=== PATIENT | male | born 1960 | race African-American/Black ===

== ENCOUNTER 2018-06-10 08:59 | Inpatient (IN) | payer MEDICARE ==
[~2018-06-10] VITALS: Ht 175.3 cm; Wt 94.8 kg
[2018-06-10] MEDS ORDERED: ONDANSETRON HCL 4MG/2ML INJ IV STA (10:56)
[2018-06-10] MEDS ORDERED: SODIUM CHLORIDE 0.9% 1,000 ML IV ONE (10:56)
[2018-06-10 11:12] LABS: HEMATOCRIT. 48.8 % (42.0-52.0); HEMOGLOBIN. 16.3 g/dL (14.0-18.0); MEAN CORPUSCULAR HEMOGLOBIN 30.7 pg (28.0-32.0); MEAN CORPUSCULAR VOLUME 91.7 fL (80.0-94.0); MEAN PLATELET VOLUME 9.9 fl (7.4-10.4); PLATELET 157 x1000/uL (130-400); RED BLOOD CELL COUNT 5.32 mill/uL (4.7-6.1); RED CELL DISTRIBUTION WIDTH 12.9 % (11.6-14.6)
[2018-06-10 11:19] LABS: CHLORIDE 107 mEq/L (98-107)
[2018-06-10 11:22] LABS: ETHANOL BLOOD < 10 mg/dL
[2018-06-10 11:24] LABS: PROTHROMBIN TIME 10.8 sec (9.6-11.0)
[2018-06-10 11:33] LABS: PLATELET ESTIMATE NORMAL
[2018-06-10] MEDS ORDERED: ONDANSETRON HCL 4MG/2ML INJ IV ONE (11:45)
[2018-06-10] MEDS ORDERED: HYDRALAZINE 20MG/ML VIAL IV ONE ×2 (11:45→13:00)
[2018-06-10 12:51] LABS: CLARITY URINE CLOUDY (CLEAR); COLOR URINE YELLOW (YELLOW); KETONES URINE 2+ (NEGATIVE); LEUKOCYTE ESTERASE URINE NEGATIVE (NEGATIVE); NITRITE URINE NEGATIVE (NEGATIVE); OCCULT BLOOD URINE 2+ (NEGATIVE); PROTEIN URINE 2+ (NEGATIVE); SPECIFIC GRAVITY URINE 1.025 (1.005-1.030); UROBILINOGEN URINE 0.2 E.U./dL (0.2-1.0)
[2018-06-10] MEDS ORDERED: PANTOPRAZOLE SODIUM 40 MG/VIAL IV ONE (13:00)
[2018-06-10] MEDS ORDERED: MORPHINE SULFATE 4 MG/ML CPJ (NOT FOR IM USE) IV ONE (13:00)
[2018-06-10 13:06] LABS: *AMPHETAMINES SCREEN URINE NEGATIVE (NEGATIVE); *BARBITURATES SCREEN URINE NEGATIVE (NEGATIVE); *BENZODIAZEPINES SCREEN URINE NEGATIVE (NEGATIVE); *COCAINE SCREEN URINE NEGATIVE (NEGATIVE); METHADONE URINE SCREEN NEGATIVE (NEGATIVE); OPIATES URINE SCREEN NEGATIVE (NEGATIVE); PHENCYCLIDINE URINE SCREEN NEGATIVE (NEGATIVE)
[2018-06-10 13:08] LABS: CANNABINOID URINE SCREEN PRESUMTIVE POSITIVE (NEGATIVE)
[2018-06-10] MEDS ORDERED: IOHEXOL-300 100 ML BOTTLE ONE (14:24)
[2018-06-10] MEDS ORDERED: KETOROLAC 15MG/ML VIAL IV PRN (14:45)
[2018-06-10] MEDS ORDERED: DEXTROSE 50% WATER 50ML SYRINGE IV PRN (14:45)
[2018-06-10] MEDS ORDERED: ONDANSETRON HCL 4MG/2ML INJ IV PRN (14:45)
[2018-06-10] MEDS ORDERED: ACETAMINOPHEN 325MG TABLET PO PRN (14:45)
[2018-06-10] MEDS ORDERED: DOCUSATE SODIUM 100MG CAPSULE PO PRN (14:45)
[2018-06-10] MEDS ORDERED: CLONIDINE 0.3MG TABLET PO ONE (14:45)
[2018-06-10] MEDS ORDERED: CLONIDINE 0.1MG TABLET PO PRN (14:45)
[2018-06-10] MEDS ORDERED: LORAZEPAM 0.5MG TABLET PO PRN (14:45)
[2018-06-10] MEDS ORDERED: GUAIFENESIN 200MG/10ML SUGAR FREE UDC PO PRN (14:45)
[2018-06-10] MEDS ORDERED: IPRATROPIUM/ALBUTEROL 0.5-3(2.5)MG/3ML NEB INH PRN (14:45)
[2018-06-10] MEDS ORDERED: NITROGLYCERIN 0.4MG TABLET SL SL PRN (14:45)
[2018-06-10] MEDS ORDERED: MAGNESIUM/ALUMINUM HYDROXIDE/SIMETHICONE 30ML UDC PO PRN (14:45)
[2018-06-10] MEDS ORDERED: AMLODIPINE 10MG TABLET PO SCH (16:09)
[2018-06-10 17:00] VITALS: BP_SYST 108; BP_SYST 160; BP_DIAS 69; BP_DIAS 79
[2018-06-10] MEDS ORDERED: METOCLOPRAMIDE 10MG/10 ML UDC PO SCH (17:40)
[2018-06-10] MEDS: INSULIN LISPRO 100 UNITS/ML SUBCUT SCH ×2 (18:10→21:00)
[2018-06-10 20:00] VITALS: BP 119/79
[2018-06-10] MEDS ORDERED: ZOLPIDEM TARTRATE 5MG TABLET PO PRN (21:00)
[2018-06-10] MEDS: BLOOD SUGAR DIAGNOSTIC STRIP TEST SCH (21:00)
[2018-06-10] MEDS: ENOXAPARIN 30MG/0.3ML SYR SUBCUT SCH (21:07)
[2018-06-10] MEDS: METOPROLOL TARTRATE 25MG TABLET PO SCH (21:08)
[2018-06-10] MEDS: LISINOPRIL 20MG TABLET PO SCH (21:08)
[2018-06-10] MEDS: SUCRALFATE 1 G/10 ML UDC PO SCH ×2 (21:14→21:15)
[2018-06-11] VITALS: BP 105/75
[2018-06-11 04:00] VITALS: BP 113/71
[2018-06-11 08:00] VITALS: BP 111/66
[2018-06-11] MEDS: INSULIN LISPRO 100 UNITS/ML SUBCUT SCH (08:10)
[2018-06-11] MEDS: BLOOD SUGAR DIAGNOSTIC STRIP TEST SCH (08:24)
[2018-06-11] MEDS: ENOXAPARIN 30MG/0.3ML SYR SUBCUT SCH (09:00)
[2018-06-11] MEDS ORDERED: PANTOPRAZOLE SODIUM 40 MG/VIAL IV SCH (09:00)
[2018-06-11] MEDS ORDERED: AMLODIPINE 10MG TABLET PO SCH (09:00)
[2018-06-11] MEDS: SUCRALFATE 1 G/10 ML UDC PO SCH (10:16)
[2018-06-11] MEDS: METOPROLOL TARTRATE 25MG TABLET PO SCH (10:18)
[2018-06-11] MEDS: LISINOPRIL 20MG TABLET PO SCH (10:19)
[2018-06-11 10:57] VITALS: BP 116/66
[2018-06-11 12:00] VITALS: BP 120/68
== END 2018-06-11 16:06 | disposition home or self-care (01) | DRG 74 ==
LOC: ER 08:59 → 7WST 13:41 → CANRESERV 14:26 → ENRESERV 14:26 → EDBEDREQ 14:56 → EDBEDREQSVC 14:56 → ENRESERV 15:32
PROVIDERS: ADMIT Internal Medicine; ATTEND Internal Medicine
DX: E11.43 Type 2 diabetes mellitus with diabetic autonomic (poly)neuropathy (principal); K29.70 Gastritis, unspecified, without bleeding; K31.84 Gastroparesis; F12.10 Cannabis abuse, uncomplicated; I10 Essential (primary) hypertension; Z95.1 Presence of aortocoronary bypass graft; Z95.5 Presence of coronary angioplasty implant and graft
CPT/HCPCS: 36415; 71045; 74177; 80305; 80320; 82962; 83036; 84484; 93005; 96361; 96374; 96375; 96376; 99285; C9113; J0360; J1650; J2270; J2405; J7030; Q9967; G0480